=== PATIENT | male | born 1985 | race African-American/Black ===

== ENCOUNTER 2016-09-30 13:25 | Emergency (ER) | payer BC, OTHER ==
--- NOTE | 2016-09-30 13:47 | PDOC ---
*Physical Exam - Physical Exam Comments: 09/30/16 13:46 MIDLEVEL NOTE Pt seen by Midlevel Provider under my direct supervision. Pt interviewed and examined. Ancillary studies reviewed. I agree with plan as outlined by Midlevel Provider. C-spine series-NAD, straightening of normal lordosis *DC/Admit/Observation/Transfer Diagnosis at time of Disposition: Whiplash Qualifiers: Encounter type: initial encounter Qualified Code(s): S13.4XXA - Sprain of ligaments of cervical spine, initial encounter - Discharge Dispostion Disposition: HOME Condition at time of disposition: Good - Prescriptions Prescriptions: Cyclobenzaprine HCl [Flexeril 10 mg] 10 mg PO BID PRN #10 tablet PRN Reason: Muscle Spasms Ibuprofen [Motrin -] 600 mg PO TID PRN #21 tablet PRN Reason: Pain - Patient Instructions Printed Discharge Instructions: DI for Whiplash Additional Instructions: Please take medication as prescribed and apply ice to the affected area as much as you can tolerate for the next 72 hours and heat thereafter. He cannot operate any heavy machinery while taking this medication that includes a car otherwise he may take just the Motrin.
[2016-09-30] MEDS ORDERED: CYCLOBENZAPRINE HCL 10 MG TABLET (FP) PO ONE (14:00)
[2016-09-30] MEDS ORDERED: IBUPROFEN 600 MG TABLET (FP) PO ONE (14:00)
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
[2016-09-30 14:41] VITALS: PULSE 63; TEMP 98.3; BMI 30.6
[2016-09-30 15:27] VITALS: BP 128/89
== END 2016-09-30 15:27 | disposition home or self-care (01) ==
LOC: JER 13:25
DX: S13.4XXA Sprain of ligaments of cervical spine, initial encounter (principal); V43.62XA Car passenger injured in collision with other type car in traffic accident, initial encounter; Y92.414 Local residential or business street as the place of occurrence of the external cause; Y93.89 Activity, other specified
CPT/HCPCS: 72050-TC; 99282-25